=== PATIENT | female | born 1940 | race Caucasian/White ===

== ENCOUNTER → 2023-09-17 15:52 | Outpatient (REF) | payer OTHER, SELFPAY ==
[2023-09-17 11:47] LABS: % Basophils 0.9 % (0-2); % Eosinophils 1.1 % (0-6); % Immature Granulocytes 0.2 % (0-0.5); % Lymphocytes 4.1 % (20.5-51.1); % Monocytes 10.4 % (1.7-9.3); % Neutrophils 83.3 % (42.2-75.2); Absolute Eosinophils 0.1 10^3/uL (0-0.7); Absolute Lymphocytes 0.2 10^3/uL (1.2-3.4); Absolute Monocytes 0.5 10^3/uL (0.1-0.6); Absolute Neutrophils 3.9 10^3/uL (1.4-6.5); Hematocrit 34.8 % (37.0-47.0); Mean Corp Hgb Conc. 34.5 g/dL (33.0-37.0); Mean Corpuscular Hgb 31.1 pg (27.0-31.0); Mean Corpuscular Volume 90.2 fL (81.0-99.0); Mean Platelet Volume 11.4 fL (7.4-10.4); Nucleated Red Blood Cells % 0 %; Platelet Count 171 10^3/uL (130-400); Red Blood Cell Count 3.86 10^6/uL (4.20-5.40); White Blood Cell Count 4.6 10^3/uL (4.8-10.8)
[2023-09-17 14:04] LABS: ALT (SGPT) 15 U/L (0-35); AST (SGOT) 25 U/L (14-36); Albumin 4.2 g/dl (3.5-5.0); Alkaline Phosphatase 87 U/L (38-126); Blood Urea Nitrogen 19 mg/dl (7-17); Calcium 9.5 mg/dl (8.4-10.2); Carbon Dioxide 27 mmol/L (22-30); Chloride 104 mmol/L (98-107); Glucose 93 mg/dl (70-99); Potassium 4.1 mmol/L (3.5-5.1); Sodium 138 mmol/L (135-145); Total Bilirubin 0.9 mg/dl (0.2-1.3); eGFR > 60.00
[2023-09-21 13:28] LABS: Albumin 4.15 g/dL (3.75-5.01); Alpha 1 Globulin 0.28 g/dL (0.19-0.46); Alpha 2 Globulin 0.57 g/dL (0.48-1.05); Free Kappa Light Chains,Quant 71.88 mg/L (3.30-19.40); Free Lambda Light Chains,Quant 5.82 mg/L (5.71-26.30); IgA 25 mg/dL (68-408); IgG 355 mg/dL (768-1632); IgM 1606 mg/dL (35-263); Immunofixation Electrophoresis IFE Done; Kappa/Lambda Fr Light Ratio 12.35 (0.26-1.65); Total Protein-Electrophoresis 6.9 g/dL (6.3-8.2)
== END ==
LOC: OIDL 15:52
PROVIDERS: ATTENDING PHYSICIAN Internal Medicine Hematology & Oncology
DX: C88.0 Waldenstrom macroglobulinemia (principal)
CPT/HCPCS: 80053; 82784; 83521; 84155; 84165; 85025; 86334

== ENCOUNTER → 2023-12-11 13:32 | Outpatient (REF) | payer OTHER, SELFPAY ==
[2023-12-11 09:40] LABS: % Basophils 0.9 % (0-2); % Eosinophils 1.6 % (0-6); % Lymphocytes 5.3 % (20.5-51.1); % Monocytes 12.8 % (1.7-9.3); % Neutrophils 79.4 % (42.2-75.2); Absolute Eosinophils 0.1 10^3/uL (0-0.7); Absolute Lymphocytes 0.2 10^3/uL (1.2-3.4); Absolute Monocytes 0.6 10^3/uL (0.1-0.6); Absolute Neutrophils 3.4 10^3/uL (1.4-6.5); Hematocrit 35.9 % (37.0-47.0); Hemoglobin 12.4 g/dL (12.0-16.0); Mean Corp Hgb Conc. 34.5 g/dL (33.0-37.0); Mean Corpuscular Hgb 31.4 pg (27.0-31.0); Mean Corpuscular Volume 90.9 fL (81.0-99.0); Mean Platelet Volume 10.1 fL (7.4-10.4); Platelet Count 177 10^3/uL (130-400); Red Blood Cell Count 3.95 10^6/uL (4.20-5.40); Red Cell Dist. Width 11.8 % (11.5-14.5); White Blood Cell Count 4.3 10^3/uL (4.8-10.8)
[2023-12-11 11:40] LABS: ALT (SGPT) 14 U/L (0-35); AST (SGOT) 28 U/L (14-36); Albumin 4.3 g/dl (3.5-5.0); Alkaline Phosphatase 73 U/L (38-126); Blood Urea Nitrogen 17 mg/dl (7-17); Calcium 9.5 mg/dl (8.4-10.2); Carbon Dioxide 28 mmol/L (22-30); Chloride 104 mmol/L (98-107); Glucose 88 mg/dl (70-99); Potassium 4.1 mmol/L (3.5-5.1); Sodium 139 mmol/L (135-145); Total Bilirubin 1.1 mg/dl (0.2-1.3); Total Protein 7.1 g/dl (6.3-8.2); eGFR > 60.00
[2023-12-14 02:23] LABS: Albumin 4.09 g/dL (3.75-5.01); Alpha 1 Globulin 0.25 g/dL (0.19-0.46); Alpha 2 Globulin 0.56 g/dL (0.48-1.05); Free Kappa Light Chains,Quant 73.78 mg/L (3.30-19.40); Free Lambda Light Chains,Quant 6.06 mg/L (5.71-26.30); IgA 12 mg/dL (68-408); IgG 365 mg/dL (768-1632); IgM 1691 mg/dL (35-263); Immunofixation Electrophoresis IFE Done; Kappa/Lambda Fr Light Ratio 12.17 (0.26-1.65); Monoclonal Protein 1.51 g/dL (<=0.00); Total Protein-Electrophoresis 6.9 g/dL (6.3-8.2)
== END ==
LOC: OIDL 13:32
PROVIDERS: ATTENDING PHYSICIAN Internal Medicine Hematology & Oncology
DX: C88.0 Waldenstrom macroglobulinemia (principal)
CPT/HCPCS: 80053; 82784; 83521; 84155; 84165; 85025; 86334

== ENCOUNTER → 2024-04-28 10:38 | Outpatient (REF) | payer OTHER, SELFPAY | LOC: RAD 10:38 | PROVIDERS: ATTENDING PHYSICIAN Nurse Practitioner Adult Health; FAMILY PHYSICIAN Family Medicine | DX: C88.00 Waldenstrom macroglobulinemia not having achieved remission (principal) | CPT/HCPCS: 72100 ==

== ENCOUNTER → 2024-07-04 11:13 | Outpatient (REF) | payer OTHER, SELFPAY | LOC: RAD 11:13 | PROVIDERS: ATTENDING PHYSICIAN Family Medicine; REFERRING PHYSICIAN Internal Medicine Hematology & Oncology | DX: N95.1 Menopausal and female climacteric states (principal); M81.0 Age-related osteoporosis without current pathological fracture | CPT/HCPCS: 77080 ==

== ENCOUNTER 2024-11-19 14:17 | Emergency (ER) | payer OTHER, SELFPAY ==
[2024-11-19] VITALS (7 sets, daily range): BP systolic 123–153; BP diastolic 52–70; BMI 20.1
[2024-11-19 15:29] LABS: Hematocrit 37.8 % (37.0-47.0); Hemoglobin 12.8 g/dL (12.0-16.0); Mean Corp Hgb Conc. 33.9 g/dL (33.0-37.0); Mean Corpuscular Volume 92.2 fL (81.0-99.0); Nucleated Red Blood Cells % 0 %; Platelet Count 156 10^3/uL (130-400); Red Cell Dist. Width 11.6 % (11.5-14.5)
[2024-11-19 15:51] LABS: Troponin I < 0.012 ng/ml
[2024-11-19 16:00] LABS: ALT (SGPT) 13 U/L (0-35); AST (SGOT) 18 U/L (14-36); Albumin 4.7 g/dl (3.5-5.0); Alkaline Phosphatase 65 U/L (38-126); Blood Urea Nitrogen 13 mg/dl (7-17); Calcium 9.6 mg/dl (8.4-10.2); Carbon Dioxide 28 mmol/L (22-30); Chloride 106 mmol/L (98-107); Estimated Creatinine Clearance 42 ml/min; Glucose 104 mg/dl (70-99); Potassium 4.0 mmol/L (3.5-5.1); Sodium 140 mmol/L (135-145); Total Protein 7.8 g/dl (6.3-8.2); eGFR > 60.00
--- NOTE | 2024-11-19 16:20 | ED.GENMED ---
History of Present Illness
General
Chief Complaint: Heart Rate Problem
Time Seen by Provider: 11/19/24 15:02
History of Present Illness
History of Present Illness:
85-year-old female history of vertigo presenting with intermittent episodes of palpitations, shortness of breath and dizziness. Patient states that she has had intermittent episodes of shortness of breath with exertion. Patient reports
intermittent episodes of palpitations. Patient states that 2 days ago she had episode of dizziness described as she felt like she was moving causing her to lose her balance and fall landing on her buttock. Patient denies striking her head or loss
of consciousness. Patient states that dizziness has since resolved. Patient states that that episode felt different than previous episodes of vertigo. Patient denies any chest pain, numbness, weakness, tingling or headaches. Patient is currently
asymptomatic.
Past History
Past History
ED Past Medical History: None
ED Past Surgical History: Gynecological
Social History
Tobacco: Non-smoker
Alcohol: None
Personal:
Living: with family
Employment: Not employed
Family History
Family History: Other (Noncontributory)
Phy Exam
Physical Exam
Physical Exam:
General: Alert, no acute distress
Head: NCAT
Eyes: clear conjunctiva, PERRLA, EOMI
Neck: supple
Cardiac: regular rate and rhythm, no murmur
Lungs: clear to auscultation bilaterally. No wheezes, rales, or rhonchi. Speaking full unlabored sentences. No respiratory distress.
Abdomen: soft, nondistended nontender. No rebound or guarding.
MSK: no lower extremity edema bilaterally. No deformity
Skin: warm, dry
Neuro: Alert and oriented x3. Cranial nerves II through XII grossly intact with no focal deficits. Normal finger-nose. 5-5 strength bilateral upper and lower extremities. Sensation intact throughout. No pronator drift. Ambulatory with steady
gait
Course
Orders/Labs/Results
Orders:
Orders
07/02/25 14:22
Electrocardiogram (*1) Urgent
Reason for Study: Shortness of Breath
EKG- Treatment ONCE
11/19/24 15:11
Complete Blood Count/With Diff Urgent
Comprehensive Metabolic Panel Urgent
Troponin I Urgent
11/19/24 16:21
CXR2 [CR Chest - 2 Views ] Urgent
Comment:
Reason For Exam: sob
Abnormal Lab Results
11/19/24
15:11
RBC 4.10 L 10^6/uL
(4.20-5.40)
MCH 31.2 H pg
(27.0-31.0)
MPV 11.2 H fL
(7.4-10.4)
Absolute Neuts (auto) 6.8 H 10^3/uL
(1.4-6.5)
Absolute Lymphs (auto) 0.2 L 10^3/uL
(1.2-3.4)
Absolute Monos (auto) 0.7 H 10^3/uL
(0.1-0.6)
Neutrophils % 86.5 H %
(42.2-75.2)
Lymphocytes % 2.9 L %
(20.5-51.1)
Glucose 104 H mg/dl
(70-99)
11/19/24 15:11
11/19/24 15:11
Vital Signs
Initial and Last Documented VS:
Initial Vital Signs
Temp Pulse Resp BP Pulse Ox
98.0 F 69 16 140/70 98
11/19/24 14:18 11/19/24 14:18 11/19/24 14:18 11/19/24 14:18 11/19/24 14:18
Last Documented Vital Signs
Temp Pulse Resp BP Pulse Ox
98.0 F 62 17 124/58 99
11/19/24 14:18 11/19/24 18:45 11/19/24 18:45 11/19/24 18:30 11/19/24 18:45
MDM/Problems Addressed
Differential Diagnosis Includes:
Anemia, YENI, NSTEMI, vertigo, electrolyte abnormality
MDM/Problems Addressed:
Results reviewed. Hemoglobin 12.8. Electrolytes within normal limits. Creatinine within normal limits. Troponin within normal limits. Chest x-ray clear with no focal infiltrate or consolidation.
On reevaluation, patient currently asymptomatic. Vitals stable. Discussed results with patient at bedside. Recommended follow-up with cardiology concerning dyspnea on exertion and primary care doctor. Patient expressed verbal understanding.
Stable for discharge home
*Pulse Oximetry
SaO2: 100
Oxygen Mode of Delivery: Room air
Patient hypoxic: no
*EKG
Interpreted by ED Provider?: Yes (EKG shows normal sinus rhythm at 61 bpm with IL 166 QTc 390 no acute ischemic changes)
*Critical Care Note
Total Time (30-74mins, 75-104mins- exclusive of procedures): Not Applicable
ED Attending Note
-
Portions of this chart may have been created with voice recognition software.� Occasional wrong word or��sound alike� substitutions may have occurred due to the inherent limitations of voice recognition software.
Discharge Plan
Departure
Patient Disposition: Home (Routine Discharge)
Date of Disposition: 11/19/24
Time of Disposition: 18:48
Patient with high blood pressure during this ER visit?: Yes
Discharge Problem:
Dyspnea on exertion, Dizziness
Instructions: Dizziness in adults - ED discharge instructions, Chest Pain CBC Follow Up, BLOOD PRESSURE
Prescriptions:
No Action
loperamide 2 mg Capsule
2 mg PO Q6HPRN PRN (Reason: diarrhea)
polyethylene glycol 3350 [Miralax] 17 gram Powder In Packet
17 g PO DAILYPRN PRN (Reason: constipation)
cefdinir 300 mg capsule
300 mg PO BID Qty: 14 0RF
metoprolol succinate [Toprol XL] 25 mg tablet extended release 24 hr
12.5 mg PO DAILY Qty: 30 0RF
Referrals:
Germania Holt DO [Family Provider, Family Practice]
Zandre James MD [Active, Cardiology]
Activity Restrictions/Additional Instructions:
Follow-up with primary care doctor and science liaison within 1 week
Drink plenty of water, stay hydrated
Return to the emergency department for chest pain, numbness, weakness, tingling or new/worsening symptoms
Interventions
Interventions:
*Risk Screen - Suicide Last Done: 11/19/24 14:18
*General Assessment Last Done: 11/19/24 15:09
*Neglect/Abuse Screening Last Done: 11/19/24 14:18
*ED- Fall Risk Assessment Last Done: 11/19/24 15:09
*Nursing Disposition Last Done: 11/19/24 18:50
ED- Pulmonary Assessment Last Done: 11/19/24 15:09
ED- Cardiac Assessment Last Done: 11/19/24 15:09
Discharge Date and Time
Discharge Date/Time: 11/19/24 19:02
Print Language: URDU
== END 2024-11-19 19:02 | disposition home or self-care (01) ==
LOC: EMR 14:17
PROVIDERS: Emergency Medicine; EMERGENCY PHYSICIAN Emergency Medicine; FAMILY PHYSICIAN Family Medicine; OTHER PHYSICIAN Internal Medicine Hematology & Oncology
DX: R42 Dizziness and giddiness (principal); R06.09 Other forms of dyspnea; R00.2 Palpitations; R03.0 Elevated blood-pressure reading, without diagnosis of hypertension
CPT/HCPCS: 99283; 71046; 80053; 84484; 85025; 93005

== ENCOUNTER → 2025-04-01 10:42 | Outpatient (REF) | payer OTHER, SELFPAY | LOC: RAD 10:42 | PROVIDERS: ATTENDING PHYSICIAN Internal Medicine Hematology & Oncology; FAMILY PHYSICIAN Family Medicine | DX: C88.00 Waldenstrom macroglobulinemia not having achieved remission (principal) | CPT/HCPCS: 71101 ==